=== PATIENT | female | born 1990 | race Caucasian/White ===

== ENCOUNTER 2017-12-14 03:09 | Inpatient (IN) | payer MEDICAID ==
[~2017-12-14] VITALS: Ht 154.9 cm; Wt 75.0 kg
[2017-12-14] MEDS: LACTATED RINGERS 1,000 ML IV SCH ×2 (03:15→03:42)
[2017-12-14] MEDS ORDERED: OXYTOCIN 30U/ 0.9% NaCL 500ML 500 ML IV ONE (03:17)
[2017-12-14] MEDS ORDERED: D5%-LACTATED RINGERS 1,000 ML IV SCH (03:17)
[2017-12-14] MEDS ORDERED: OXYTOCIN 30U/ 0.9% NaCL 500ML 500 ML ONE ×2 (03:17→05:44)
[2017-12-14] MEDS ORDERED: NEWBORN KIT ONE (03:17)
[2017-12-14] MEDS ORDERED: MISOPROSTOL 200 MCG TABLET ONE (03:17)
[2017-12-14] MEDS ORDERED: LIDOCAINE 1%, 20ML ONE (03:17)
[2017-12-14] MEDS ORDERED: TERBUTALINE 1 MG/ML, 1ML IVPush PRN (03:30)
[2017-12-14] MEDS ORDERED: FENTANYL PF 100 MCG/2ML IV PRN (03:30)
[2017-12-14] MEDS ORDERED: CALCIUM CARBONATE 500 MG TAB.CHEW PO PRN (03:30)
[2017-12-14] MEDS ORDERED: ONDANSETRON 2MG/ML, 2ML IVPush PRN (03:30)
[2017-12-14] MEDS ORDERED: FENTANYL PF 100 MCG/2ML IVPush PRN (03:30)
[2017-12-14] MEDS ORDERED: FENTANYL/BUPIV./NS/PF 250 ML EPIDCONT SCH (04:05)
[2017-12-14] MEDS ORDERED: LACTATED RINGERS 1,000 ML IV SCH (04:05)
[2017-12-14] MEDS ORDERED: BUPIVACAINE/PF 0.25% ONE (04:06)
[2017-12-14] MEDS ORDERED: FENTANYL/BUPIV./NS/PF 0 ML EPIDCONT ONE (04:07)
[2017-12-14 04:12] LABS: BASOPHILS # (AUTO) 0.05 x10^3/uL (0-0.1); BASOPHILS % (AUTO) 1 % (0-1); EOSINOPHILS % (AUTO) 1 % (1-7); LYMPHOCYTES # (AUTO) 2.61 x10^3/uL (1-3.4); LYMPHOCYTES % (AUTO) 23 % (22-44); MD NO; MEAN CORPUSCULAR HEMOGLOBIN 30.4 pg (27.0-34.8); MEAN CORPUSCULAR HGB CONC 33.3 g/dL (32.4-35.8); MEAN CORPUSCULAR VOLUME 91.5 fL (80-100); MEAN PLATELET VOLUME 8.3 fL (7.4-10.4); MONOCYTES # (AUTO) 1.13 x10^3/uL (0.2-0.8); MONOCYTES % (AUTO) 10 % (2-9); NEUTROPHILS # (AUTO) 7.54 x10^3/uL (1.8-6.8); NEUTROPHILS % (AUTO) 66 % (42-75); PLATELET COUNT 310 x10^3/uL (130-400); RED CELL DISTRIBUTION WIDTH 15.2 % (9.6-15.2)
[2017-12-14] MEDS ORDERED: FENTANYL/BUPIV./NS/PF 250 ML EPIDCONT ONE (04:12)
[2017-12-14] MEDS ORDERED: NALOXONE 0.4 MG/ML, 1ML IVPush PRN (04:30)
[2017-12-14] MEDS ORDERED: LACTATED RINGERS 1,000 ML IVBOLUS PRN (04:30)
[2017-12-14] MEDS ORDERED: EPHEDRINE 50 MG/ML, 1ML IVPush PRN (04:30)
[2017-12-14] MEDS ORDERED: OXYTOCIN 30U/ 0.9% NaCL 500ML 500 ML IV SCH (05:43)
[2017-12-14] MEDS ORDERED: IBUPROFEN 600 MG TABLET ONE (05:44)
[2017-12-14] MEDS ORDERED: OXYcodone/APAP 5/325MG TABLET ONE (05:44)
[2017-12-14] MEDS: OXYcodone/APAP 5/325MG TABLET PO PRN ×4 (05:47→22:28)
[2017-12-14] MEDS: IBUPROFEN 600 MG TABLET PO PRN ×3 (05:47→18:11)
[2017-12-14] MEDS ORDERED: MISOPROSTOL 200 MCG TABLET PR PRN (06:00)
[2017-12-14 08:00] VITALS: BP 117/56
[2017-12-14] MEDS: PRENATAL VIT/IRON/FA 1 EACH TABLET PO SCH (09:00)
[2017-12-14] MEDS: DOCUSATE 100 MG CAPSULE PO PRN ×2 (11:43→22:28)
[2017-12-14 12:30] VITALS: BP 118/64
[2017-12-14 13:37] LABS: BASOPHILS # (AUTO) 0.06 x10^3/uL (0-0.1); BASOPHILS % (AUTO) 0 % (0-1); EOSINOPHILS # (AUTO) 0.04 x10^3/uL (0-0.4); EOSINOPHILS % (AUTO) 0 % (1-7); LYMPHOCYTES # (AUTO) 2.33 x10^3/uL (1-3.4); LYMPHOCYTES % (AUTO) 15 % (22-44); MD NO; MEAN CORPUSCULAR HEMOGLOBIN 30.7 pg (27.0-34.8); MEAN CORPUSCULAR HGB CONC 33.6 g/dL (32.4-35.8); MEAN CORPUSCULAR VOLUME 91.5 fL (80-100); MONOCYTES # (AUTO) 1.11 x10^3/uL (0.2-0.8); MONOCYTES % (AUTO) 7 % (2-9); NEUTROPHILS # (AUTO) 12.15 x10^3/uL (1.8-6.8); NEUTROPHILS % (AUTO) 78 % (42-75); PLATELET COUNT 279 x10^3/uL (130-400); RED BLOOD COUNT 3.67 x10^6/uL (3.82-5.3); RED CELL DISTRIBUTION WIDTH 14.9 % (9.6-15.2)
[2017-12-14 16:00] VITALS: BP 111/63
[2017-12-14 20:00] VITALS: BP 121/61
[2017-12-14 23:30] VITALS: BP 108/54
[2017-12-15] MEDS: OXYcodone/APAP 5/325MG TABLET PO PRN ×2 (03:36→08:06)
[2017-12-15] MEDS: IBUPROFEN 600 MG TABLET PO PRN ×2 (03:36→11:27)
[2017-12-15 07:33] VITALS: BP 97/53
[2017-12-15] MEDS ORDERED: IBUP-1222 PO (07:41)
[2017-12-15] MEDS: PRENATAL VIT/IRON/FA 1 EACH TABLET PO SCH (08:06)
[2017-12-15] MEDS: DOCUSATE 100 MG CAPSULE PO PRN (08:06)
== END 2017-12-15 16:37 | disposition home or self-care (01) | DRG 775 ==
LOC: LDIP 03:09 → 2NW 07:54
PROVIDERS: ADMIT Obstetrics & Gynecology; ATTEND Obstetrics & Gynecology
PROC: 10E0XZZ Delivery of Products of Conception, External Approach (ICD-10-PCS; principal; 2017-12-14)
PROC: 0HQ9XZZ Repair Perineum Skin, External Approach (ICD-10-PCS; 2017-12-14)
PROC: 3E0R3BZ Introduction of Anesthetic Agent into Spinal Canal, Percutaneous Approach (ICD-10-PCS; 2017-12-14)
PROC: 00HU33Z Insertion of Infusion Device into Spinal Canal, Percutaneous Approach (ICD-10-PCS; 2017-12-14)
DX: O99.72 Diseases of the skin and subcutaneous tissue complicating childbirth (principal); F17.200 Nicotine dependence, unspecified, uncomplicated; O70.0 First degree perineal laceration during delivery; O99.334 Smoking (tobacco) complicating childbirth; L02.32 Furuncle of buttock; Z37.0 Single live birth; Z3A.39 39 weeks gestation of pregnancy; Z82.3 Family history of stroke
CPT/HCPCS: 36415; 85025; 86850; 86900; J3010; J2590; J7120